=== PATIENT | female | born 1980 | race Caucasian/White ===

== ENCOUNTER → 2019-01-12 | Outpatient (CLI) | payer OTHER ==
[2019-01-12 22:29] LABS: LDL Cholesterol,Calculated 135.8 mg/dL (0.0-131.0); VLDL Calculation 11.2 mg/dL (5.00-40.00)
[2019-01-12 22:41] LABS: T4, Free (Free Thyroxine) 1.2 ng/dL (0.80-1.80)
== END ==
LOC: LABWHC1 15:48
PROVIDERS: ATTEND Obstetrics & Gynecology
DX: Z13.220 Encounter for screening for lipoid disorders (principal); Z13.29 Encounter for screening for other suspected endocrine disorder; Z13.1 Encounter for screening for diabetes mellitus
CPT/HCPCS: 36415; 80061; 82947; 84439; 84443

== ENCOUNTER → 2019-02-07 | Outpatient (CLI) | payer OTHER ==
--- NOTE | 2019-02-08 09:28 | MM ---
Reason for exam: screening (asymptomatic). Last mammogram was performed 3 years and 4 months ago. Physical Findings: A clinical breast exam by your physician is recommended on an annual basis and results should be correlated with mammographic findings. MG Screening Mammo w CAD Bilateral CC and MLO view(s) were taken. Prior study comparison: October 09, 2015, bilateral MG 3d diag mammo w/cad ADELINE. The breast tissue is heterogeneously dense. This may lower the sensitivity of mammography. No significant changes when compared with prior studies. ASSESSMENT: Negative, BI-RAD 1 RECOMMENDATION: Routine screening mammogram of both breasts in 1 year.
== END | disposition home or self-care (01) ==
LOC: RADMAMWWP 07:58
PROVIDERS: ATTEND Obstetrics & Gynecology
DX: Z12.31 Encounter for screening mammogram for malignant neoplasm of breast (principal)
CPT/HCPCS: 77067

== ENCOUNTER → 2021-05-05 | Outpatient (CLI) | payer OTHER ==
--- NOTE | 2021-05-11 12:21 | MM ---
Reason for exam: screening (asymptomatic). Last mammogram was performed 1 year ago. History: Took hormonal contraceptives for 15 years. Taking progesterone for 2 months. Physical Findings: A clinical breast exam by your physician is recommended on an annual basis and results should be correlated with mammographic findings. MG 3D Screening Mammo W/Cad Bilateral CC and MLO view(s) were taken. Prior study comparison: April 29, 2020, bilateral MG 3d screening mammo w/cad. February 07, 2019, bilateral MG screening mammo w CAD. The breast tissue is heterogeneously dense. This may lower the sensitivity of mammography. No significant changes when compared with prior studies. ASSESSMENT: Benign, BI-RAD 2 RECOMMENDATION: Routine screening mammogram of both breasts in 1 year.
== END | disposition home or self-care (01) ==
LOC: RADMAMWWP 09:51
PROVIDERS: ATTEND Obstetrics & Gynecology
DX: Z12.31 Encounter for screening mammogram for malignant neoplasm of breast (principal)
CPT/HCPCS: 77063; 77067

== ENCOUNTER → 2021-06-30 | Outpatient (CLI) | payer OTHER ==
[2021-06-30 19:04] LABS: HCT 44.4 % (37.2-46.3); HGB 14.9 g/dL (12.0-15.0); MCH 30.8 pg (27.0-32.0); MCHC 33.6 g/dL (32.0-37.0); MCV 91.9 fL (80.0-97.0); Mean Platelet Volume 10.1 fL (9.5-12.2); Platelet Count 360 X 10*3/uL (140-440); RBC 4.83 X 10*6/uL (4.10-5.20); RDW 11.9 % (11.5-14.5); WBC 6.64 X 10*3/uL (4.50-10.00)
[2021-07-02 21:15] LABS: VLDL Calculation 13.88 mg/dL (5.00-40.00)
[2021-07-02 23:31] LABS: African American GFR (CKD) 136.4 (60.0-200.0); Albumin 4.9 g/dL (3.8-4.9); Albumin/Globulin Ratio 1.94 (1.60-3.17); Anion Gap 14.4 mmol/L (4.00-12.00); BUN/Creat Ratio 30.14 Ratio (12.00-20.00); Blood Urea Nitrogen 15.4 mg/dL (9.0-27.0); Calcium 9.6 mg/dL (8.7-10.3); Carbon Dioxide 24.6 mmol/L (21.6-31.8); Chol/HDL Ratio 3.91 Ratio; Follicle Stimulating Hormone 3.9 mIU/mL; Globulin 2.5 g/dL (1.6-3.3); HDL Cholesterol 54.2 mg/dL (40.00-60.00); LDL Cholesterol,Calculated 143.9 mg/dL (0.0-131.0); Non-African American GFR(CKD) 117.7 (60.0-200.0); Potassium 3.8 mmol/L (3.5-5.5); Total Bilirubin 0.9 mg/dL (0.30-1.20); Total Protein 7.4 g/dL (6.2-8.2); Triglycerides 69.4 mg/dL (0.00-149.00)
== END | disposition home or self-care (01) ==
LOC: LABWHC1 13:40
PROVIDERS: ATTEND Obstetrics & Gynecology
DX: R53.83 Other fatigue (principal); Z20.822 Contact with and (suspected) exposure to COVID-19; N95.1 Menopausal and female climacteric states; E34.50 Androgen insensitivity syndrome, unspecified; Z86.16 Personal history of COVID-19
CPT/HCPCS: 36415; 80053; 80061; 82306; 82607; 82670; 83001; 84144; 84403; 84443; 84481; 85027; 86769

== ENCOUNTER → 2022-08-02 | Outpatient (CLI) | payer OTHER ==
[2022-08-02 16:49] LABS: INR 0.9 (<1.2); Prothrombin Time 10.3 sec (9.0-12.0)
[2022-08-02 23:12] LABS: Basophils # (A) 0.06 X 10*3/uL (0.00-0.10); Basophils % (A) 0.7 %; Eosinophils # (A) 0.07 X 10*3/uL (0.04-0.35); Eosinophils % (A) 0.8 %; HGB 14.3 g/dL (12.0-15.0); Immature Grans, Automated 0.3 %; Lymphocytes # (A) 2.18 X 10*3/uL (0.90-5.00); Lymphocytes % (A) 23.8 %; MCH 30.8 pg (27.0-32.0); MCV 90.5 fL (80.0-97.0); Mean Platelet Volume 10.5 fL (9.5-12.2); Monocytes # (A) 0.78 X 10*3/uL (0.20-1.00); Monocytes % (A) 8.5 %; NRBC Per 100 WBC 0 /100 WBCS (0.0-0.0); Neutrophils # (A) 6.03 X 10*3/uL (1.80-7.70); Neutrophils % (A) 65.9 %; Platelet Count 424 X 10*3/uL (140-440); RBC 4.64 X 10*6/uL (4.10-5.20); RDW 11.9 % (11.5-14.5); WBC 9.15 X 10*3/uL (4.50-10.00)
[2022-08-03 00:07] LABS: African American GFR (CKD) 122.1 (60.0-200.0); Albumin 5.3 g/dL (3.8-4.9); Albumin/Globulin Ratio 2.04 (1.60-3.17); Anion Gap 14.1 mmol/L (10.00-18.00); BUN/Creat Ratio 27.57 Ratio (12.00-20.00); Blood Urea Nitrogen 19.3 mg/dL (9.0-27.0); Carbon Dioxide 19.9 mmol/L (20.0-27.5); Globulin 2.6 g/dL (1.6-3.3); Non-African American GFR(CKD) 105.4 (60.0-200.0); Potassium 4.3 mmol/L (3.5-5.5); Total Bilirubin 1.3 mg/dL (0.30-1.20); Total Protein 7.9 g/dL (6.2-8.2)
--- NOTE | 2022-08-03 09:39 | XR ---
EXAMINATION TYPE: XR chest 2V DATE OF EXAM: 08/02/2022 COMPARISON: None INDICATION: Presurgical evaluation TECHNIQUE: Frontal and lateral views of the chest are obtained. FINDINGS: The heart size is normal. The pulmonary vasculature is normal. The lungs are clear. IMPRESSION: 1. No acute pulmonary process.
== END | disposition home or self-care (01) ==
LOC: LABPAT 15:22
PROVIDERS: ATTEND Orthopaedic Surgery Orthopaedic Surgery of the Spine
DX: Z01.818 Encounter for other preprocedural examination (principal); I51.7 Cardiomegaly; M54.10 Radiculopathy, site unspecified; R94.31 Abnormal electrocardiogram [ECG] [EKG]
CPT/HCPCS: 71046; 80053; 85025; 85610; 85730; 93005

== ENCOUNTER 2022-08-11 11:08 | Observation (INO) | payer OTHER ==
[~2022-08-11 11:08] MED LIST: DEXAMETHASONE SOD PHOSPHATE 4 MG/ML 1 ML VIAL IV ONE; LIDOCAINE 1% (10MG/ML) FOR IV START INTRADERMA PRN; methylPREDNISolone ACETATE 80 MG/ML 1 ML VIAL INTRAARTIC STA
[2022-08-11] MEDS ORDERED: LACTATED RINGERS 1,000 ML IV ONE (11:50)
[2022-08-11] MEDS ORDERED: HYDROmorphone 1 MG/ML 1 ML SYRINGE IVP ONE (11:50)
[2022-08-11] MEDS: ONDANSETRON 4 MG/2 ML VIAL IVP ONE ×2 (11:59→14:28)
[2022-08-11] MEDS ORDERED: LIDOCAINE 2% INJ 20 MG/ML (2 ML VIAL) ONE (12:09)
[2022-08-11] MEDS ORDERED: MIDAZOLAM 2 MG/2 ML VIAL ONE (12:09)
[2022-08-11] MEDS ORDERED: fentaNYL (PF) 50 MCG/ML 2 ML AMP ONE (12:09)
[2022-08-11] MEDS ORDERED: SUCCINYLCHOLINE CHLORIDE 200 MG/10 ML VIAL IV ONE (12:09)
[2022-08-11] MEDS ORDERED: PROPOFOL 10 MG/ML 20 ML VIAL IV ONE (12:09)
[2022-08-11] MEDS ORDERED: THROMBIN (BOVINE) 5,000 UNIT VIAL TOPICAL ONE (12:13)
[2022-08-11] MEDS ORDERED: ceFAZolin 1,000 MG in SODIUM CHLORIDE 0.9% 1,000 ML IRRIGATION ONE (12:13)
[2022-08-11] MEDS ORDERED: GELATIN SPONGE,ABSORB (LARGE) 1 EACH SPONGE TOPICAL ONE (12:13)
[2022-08-11] MEDS ORDERED: LIDOCAINE 0.5%-EPI 1:200,000 50 ML VIAL SQ ONE (12:13)
[2022-08-11] MEDS ORDERED: methylPREDNISolone ACETATE 80 MG/ML 1 ML VIAL MISCELLANE ONE (12:13)
--- NOTE | 2022-08-11 13:09 | FL ---
EXAMINATION TYPE: FL guidance operating room, XR lumbar spine 2 or 3V DATE OF EXAM: 08/11/2022 CLINICAL HISTORY: Low back pain TECHNIQUE: Fluoroscopy. Intraoperative 2 view lumbar spine COMPARISON: None. FINDINGS: Fluoroscopic guidance was provided during lumbar laminectomy and discectomy procedure perf ormed by Dr. Kearney. A total of 1 seconds of fluoroscopic time was utilized during the procedure and 1 spot images was acquired. Single intraoperative image saved to PACS is nondiagnostic. IMPRESSION: As Above.
[2022-08-11] MEDS ORDERED: BENZOCAINE/MENTHOL LOZENG 1 EACH LOZENGE MUCOUS MEM PRN (13:31)
[2022-08-11] MEDS ORDERED: HYDROmorphone 0.5 MG/0.5 ML SYRINGE IVP PRN (13:31)
[2022-08-11] MEDS ORDERED: ONDANSETRON 4 MG/2 ML VIAL IVP PRN (13:32)
[2022-08-11] MEDS ORDERED: CYCLOBENZAPRINE 10 MG TAB PO PRN (13:32)
[2022-08-11] MEDS ORDERED: IBUPROFEN 800 MG TAB PO PRN (13:33)
[2022-08-11] MEDS ORDERED: traMADol 50 MG TAB PO PRN (13:33)
[2022-08-11] MEDS ORDERED: HYDROcodone/APAP 7.5-325MG 1 EACH TAB PO PRN ×2 (13:33→13:34)
[2022-08-11] MEDS ORDERED: SUMAtriptan succinate 50 MG TAB PO PRN (13:33)
--- NOTE | 2022-08-11 13:37 | P.OP ---
Date of Procedure: 08/11/22 Preoperative Diagnosis: Herniated nucleus pulposus L5-S1, left lower extremity radiculopathy, left lower extremity weakness Postoperative Diagnosis: Same Anesthesia: GETA Pathology: none sent Condition: stable Disposition: PACU Description of Procedure: BRIEF OPERATIVE NOTE Preoperative Diagnosis:Herniated nucleus pulposus L5-S1, left lower extremity radiculopathy, left lower extremity weakness Postoperative Diagnosis:Herniated nucleus pulposus L5-S1, left lower extremity radiculopathy, left lower extremity weakness Procedure: Laminectomy and decompression L5-S1 with partial medial facetectomy and foraminotomy for decompression Discectomy for decompression L5-S1 Use of fluoroscopic guidance Surgeon: Dr. Kearney Corporate Safety Coordinator: Ralph Gordillo is present throughout the entire the case persistence during positioning, dissection, exposure, visualization, and all crucial elements of the case as well as closure. Anesthesia: General anesthesia per Dr. Torres Estimated blood loss: Approximately 20 mL Complications: None apparent Components implanted: None Disposition: To recovery room in good stable condition. OPERATIVE INDICATIONS The patient has been having issues in their lower back and lower extremities. The patient had been having issues for a few months but had severe worsening over the past few weeks. She's been having severe left lower extremity pain with numbness tingling and some subjective weakness as well. She is found have a large disc herniation L5-S1 which quite well with her low back and lower e xtremity symptoms. She denied having any benefit with aggressive conservative care with medicines and therapy. The patient has been through conservative treatment. We discussed various treatment options including surgery, and the patient wishes to proceed with surgery We discussed the risk, patient's alternatives and benefits of surgery including but not limited to, risk of bleeding risk of infection, risk of need for further surgery, risk of decreased, loss of motion, loss of function, nerve damage, paralysis, heart attack, blindness and . OPERATIVE SUMMARY After discussing all the risks, patient alternatives and benefits at length, the patient elected to proceed with surgical intervention, signed informed consent, and presented for their procedure. The patient was seen and examined in the preoperative holding area and the surgical site was marked. The patient was given antibiotics and brought to the operating room. The patient was sedated and intubated by anesthesia in standard fashion. The patient was positioned on to the operating room table in a prone position on the appropriate frame which was well-padded and well molded. We were careful to pad any bony prominences and pressure points. We were careful to maintain the patient's cervical spine and good neutral alignment and position throughout. The patient was prepped and draped in a normal standard fashion. An appropriate timeout and keystone protocol performed. We were able to proceed with the surgery. Fluoroscopy was utilized to establish the appropriate level. The local wound area was infiltrated with local anesthetic. An incision was made at the midline longitudinally over the appropriate levels at L5-S1. Dissection was taken down subcutaneously to the level of the fascia which was split midline. Dissection was taken over the lamina. Intraoperative fluoroscopy was taken which showed a marker at the appropriate level of L5-S1. With the appropriate level positively confirmed, we were able to proceed with laminectomy. The wound was copiously irrigated and suctioned dry as had been done periodically throughout the case. I performed a laminectomy with a combination of curettes and a high-speed bur and Kerrison rongeurs. A small medial facetectomy was performed again further access. A partial foraminotomy was also performed. Portions of the ligamentum flavum were taken down to expose the dura and traversing nerve root. I was able to mobilize the traversing nerve root and gain access to the disc space. Note was made of obvious compression from the disc. Protecting the soft tissue structures, a small annulotomy was established. I was able to perform discectomy and remove any extruded disc fragments and any loose fragments from within the disc itself. There is some disc desiccation noted. I tried to preserve the disc annulus that appeared stable. There were no further extruded fragments noted. There is no evidence of dural tear or leak. Good hemostasis maintained. The wound was copiously irrigated and suctioned dry. Good decompression and discectomy was noted. We were able to proceed with closure. The fascia was closed for a watertight closure. The subcuticular tissue was closed with absorbable suture. The wound was cleaned and dried and dressed with the appropriate dressing. The drapes were broken down. The patient was gently rolled back onto their hospital bed being careful to maintain their cervical spine and good neutral alignment and position. They were woken up by anesthesia, extubated, and brought to the recovery room in good stable condition. The patient will be admitted to the hospital for observation and for appropriate postoperative care, medical management and monitoring. We will continue to follow them closely about the postoperative course.
[2022-08-11] MEDS: HYDROmorphone 0.5 MG/0.5 ML SYRINGE IVP PRN ×3 (14:07→14:27)
[2022-08-11] MEDS ORDERED: SODIUM CHLORIDE 0.9% 1,000 ML IV ONE (14:37)
[2022-08-11] MEDS: LACTATED RINGERS 1,000 ML IV SCH (15:40)
[2022-08-11] MEDS: ACETAMINOPHEN TAB 500 MG TAB PO SCH ×2 (17:05→21:01)
[2022-08-11] MEDS: KETOROLAC 15 MG/ML 1 ML VIAL IVP SCH (17:05)
[2022-08-11] MEDS: SODIUM CHLORIDE 0.9% 1,000 ML IV SCH (17:06)
[2022-08-11] MEDS ORDERED: CYCLOBENZAPRINE 10 MG TAB PO SCH (21:00)
[2022-08-12] MEDS: KETOROLAC 15 MG/ML 1 ML VIAL IVP SCH ×3 (00:44→12:02)
[2022-08-12] MEDS: SODIUM CHLORIDE 0.9% 1,000 ML IV SCH ×2 (00:46→07:36)
[2022-08-12 02:08] VITALS: RESP 16; TEMP 98.4
[2022-08-12] MEDS: LACTATED RINGERS 1,000 ML IV SCH (05:48)
[2022-08-12] MEDS: ACETAMINOPHEN TAB 500 MG TAB PO SCH (08:18)
[2022-08-12 08:38] VITALS: BP 118/75; PULSE 81
[2022-08-12] MEDS ORDERED: CHOLECALCIFEROL 125 MCG (5000 IU) TABLET PO SCH (09:00)
--- NOTE | 2022-08-12 09:46 | P.DS ---
Providers Date of admission: 08/12/22 05:54 Attending physician: Narciso Kearney Primary care physician: [facility] Course: The patient presented on the day of admission as per their operative note. She had severe radicular pain and low back pain incapacitating issues causing her great difficulty with resting and walking and mobilizing due to a disc herniation at L5-S1. She presented for her surgery as per her operative note. This morning she says she is doing so much better. She feels that this is the first time she's been able to sit up out of bed on her own in the past month. She feels great relief in her leg. She says her back is sore around the surgical site. She denies any nausea or vomiting. She is voiding freely. Physical Exam The incision site is clean dry and intact. There is no erythema no drainage. There is no purulence no evidence of infection. There is no drainage the wound is clear. Abdomen soft and nontender. Chest has good excursion with deep inspiration and expiration. The patient has active and passive range of motion intact at the upper and lower extremities. There is no acute change in neurologic status. She has sustained dorsal flexion and EHL intact. Hospital Course Postoperative day #1 status post laminectomy discectomy at L5-S1 for disc herniation with extruded fragment and lower extremity radiculopathy Patient is doing very well thus far and is happy with results. She was doing quite out of it last night and stayed overnight for observation. The patient has been making good progress postoperatively. They have completed the prophylactic antibiotics without any signs or symptoms of infection. The patient has been able to advance their diet, and is tolerating diet adequately. The pain was initially controlled with IV medications and is now controlled appropriately with oral medications. The patient has been able to increase their mobilization. The patient has progressed appropriately. I think they are in good stable condition for discharge today. They will be sent home with appropriate prescriptions. I answered their questions to the best of my ability in a language that they can understand and they are agreeable with the plan. They will follow up as directed in approximately 2 weeks or sooner if she is having problems. Patient Condition at Discharge: Good Plan - Discharge Summary Discharge Rx Participant: No New Discharge Prescriptions: New Hydrocodone/Acetaminophen [Hydrocodone/Acetaminophen 7.5-325] 1 each PO Q6HR 7 Days #28 tab No Action Cholecalciferol [Vitamin D3 (125 Mcg = 5000 Iu)] 125 mcg PO DAILY Cyclobenzaprine HCl 10 mg PO HS Hydrocodone/Acetaminophen [Hydrocodone-Acetamin 7.5-325] 1 each PO TID PRN PRN Reason: Pain Ibuprofen 800 mg PO Q8H PRN PRN Reason: Pain Unk Collagen Powder 1 scoop PO DAILY SUMAtriptan succinate [Imitrex] 100 mg PO DIRECTED PRN PRN Reason: Migraine Headache Acetaminophen Tab [Tylenol Tab] 1,000 mg PO TID traMADol HCl [Ultram] 50 mg PO BID PRN PRN Reason: Pain Unk Progesterone Cream 30mg 2 pump TOPICAL DAILY Unk Multi Vitamin 1 tab PO DAILY Unk Iodine Drops 4 drop PO DAILY Discharge Medication List Acetaminophen Tab [Tylenol Tab] 1,000 mg PO TID 08/05/22 [History] Cholecalciferol [Vitamin D3 (125 Mcg = 5000 Iu)] 125 mcg PO DAILY 08/05/22 [History] Cyclobenzaprine HCl 10 mg PO HS 08/05/22 [History] Hydrocodone/Acetaminophen [Hydrocodone-Acetamin 7.5-325] 1 each PO TID PRN 08/05/22 [History] Ibuprofen 800 mg PO Q8H PRN 08/05/22 [History] SUMAtriptan succinate [Imitrex] 100 mg PO DIRECTED PRN 08/05/22 [History] Unk Collagen Powder 1 scoop PO DAILY 08/05/22 [History] Unk Iodine Drops 4 drop PO DAILY 08/05/22 [History] Unk Multi Vitamin 1 tab PO DAILY 08/05/22 [History] Unk Progesterone Cream 30mg 2 pump TOPICAL DAILY 08/05/22 [History] traMADol HCl [Ultram] 50 mg PO BID PRN 08/05/22 [History] Hydrocodone/Acetaminophen [Hydrocodone/Acetaminophen 7.5-325] 1 each PO Q6HR 7 Days #28 tab 08/11/22 [Rx]
[2022-08-14] MEDS ORDERED: IBUPROFEN 600 MG TAB PO SCH
== END 2022-08-12 12:30 ==
LOC: OR 11:08 → 4SSUR 14:01 → OR 08-12 05:54 → 4SSUR 08-12 05:54
PROVIDERS: ADMIT Orthopaedic Surgery Orthopaedic Surgery of the Spine; ATTEND Orthopaedic Surgery Orthopaedic Surgery of the Spine
DX: M51.17 Intervertebral disc disorders with radiculopathy, lumbosacral region (principal); R53.1 Weakness
CPT/HCPCS: 96365; 96366; 96375; 97161; 81025; 72100; 63030; G0378; J2250; J0330; J1040; J0690 ×3; J2405; J3010; J1170 ×2; J1885 ×2; J2704; J2001

== ENCOUNTER → 2022-10-14 | Outpatient (CLI) | payer OTHER ==
--- NOTE | 2022-10-15 08:34 | MM ---
Reason for Exam: Screening (asymptomatic). Last mammogram was performed 1 year(s) and 5 month(s) ago. Patient History: Menarche at age 10. First Full-Term at age 21. Patient has history of breast feeding. Currently using Progesterone, for 2 months. Patient used Hormonal Contraceptives for 15 years. Risk Values: Kat 5 year model risk: 0.7%. NCI Lifetime model risk: 8.7%. Prior Study Comparison: 02/07/2019 Bilateral Screening Mammogram, [facility]. 04/29/2020 Bilateral Screening Mammogram, [facility]. 05/05/2021 Bilateral Screening Mammogram, [facility]. Tissue Density: The breast tissue is heterogeneously dense. This may lower the sensitivity of mammography. Findings: Analyzed By CAD. There is no suspicious group of microcalcifications or new suspicious mass in either breast. Overall Assessment: Negative, BI-RAD 1 Management: Screening Mammogram of both breasts in 1 year. A clinical breast exam by your physician is recommended on an annual basis and results should be correlated with mammographic findings. Electronically signed and approved by: Lavelle Acevedo D.O.
== END | disposition home or self-care (01) ==
LOC: RADMAMWWP 10-04 09:16
PROVIDERS: ATTEND Obstetrics & Gynecology
DX: Z12.31 Encounter for screening mammogram for malignant neoplasm of breast (principal)
CPT/HCPCS: 77063; 77067

== ENCOUNTER → 2023-10-18 | Outpatient (CLI) | payer OTHER ==
--- NOTE | 2023-10-19 19:47 | MM ---
Reason for Exam: Screening (asymptomatic). Last screening mammogram was performed 12 month(s) ago. Patient History: Menarche at age 10. First Full-Term at age 21. Patient has history of breast feeding. Currently using Progesterone, for 2 months. Patient used Hormonal Contraceptives for 15 years. Risk Values: Kat 5 year model risk: 0.7%. NCI Lifetime model risk: 8.6%. Prior Study Comparison: 04/29/2020 Bilateral Screening Mammogram, [facility]. 05/05/2021 Bilateral Screening Mammogram, [facility]. 10/14/2022 Bilateral MG 3D screening mammo w/cad, [facility]. Tissue Density: The breast tissue is heterogeneously dense. This may lower the sensitivity of mammography. Findings: Analyzed By CAD. Central asymmetric density right MLO view appears more defined. This may represent superimposed shadow but further evaluation is recommended. Otherwise, no significant change. Overall Assessment: Incomplete: need additional imaging evaluation, BI-RAD 0 Management: Special View Mammogram of the right breast. Diagnostic Breast Ultrasound of the right breast. Additional views to include spot 3-D MLO and 3-D lateral views. Targeted right breast ultrasound if any persisting abnormality. [facility] will attempt to contact patient to return for supplemental views and ultrasound if indicated. Electronically signed and approved by: Nhung Car M.D. Radiologist
== END | disposition home or self-care (01) ==
LOC: RADMAMWWP 08:32
PROVIDERS: ATTEND Obstetrics & Gynecology
DX: Z12.31 Encounter for screening mammogram for malignant neoplasm of breast (principal)
CPT/HCPCS: 77063; 77067

== ENCOUNTER 2023-10-21 14:14 | Emergency (ER) | payer OTHER ==
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
[2023-10-21 14:34] VITALS: TEMP 98
[2023-10-21] MEDS: HYDROmorphone 1 MG/ML 1 ML SYRINGE IVP STA ×2 (14:40→16:43)
[2023-10-21] MEDS: SODIUM CHLORIDE 0.9% 500 ML 500 ML IV STA (14:40)
[2023-10-21 14:46] LABS: Basophils # (A) 0.1 k/uL (0-0.2); Basophils % (A) 0 %; Eosinophils # (A) 0.2 k/uL (0-0.7); Eosinophils % (A) 1 %; HGB 14.1 gm/dL (11.4-16.0); Lymphocytes # (A) 1.6 k/uL (1.0-4.8); Lymphocytes % (A) 13 %; MCH 32.2 pg (25.0-35.0); MCHC 33.5 g/dL (31.0-37.0); MCV 95.9 fL (80.0-100.0); Monocytes # (A) 0.6 k/uL (0-1.0); Monocytes % (A) 5 %; Neutrophils # (A) 9.4 k/uL (1.3-7.7); Neutrophils % (A) 79 %; Platelet Count 321 k/uL (150-450); RBC 4.38 m/uL (3.80-5.40); WBC 11.9 k/uL (3.8-10.6)
[2023-10-21 14:55] LABS: Partial Thromboplastin Time 23.2 sec (22.0-30.0); Prothrombin Time 11.3 sec (10.0-12.5)
[2023-10-21 15:01] LABS: ALT 23 U/L (4-34); AST 29 U/L (14-36); African American GFR (CKD) 80 (>60 ml/min/1.73 sqM); Albumin 4.7 g/dL (3.5-5.0); Alkaline Phosphatase 57 U/L (38-126); Anion Gap 7 mmol/L; Blood Urea Nitrogen 22 mg/dL (7-17); Calcium 9.8 mg/dL (8.4-10.2); Carbon Dioxide 30 mmol/L (22-30); Chloride 101 mmol/L (98-107); Glucose 106 mg/dL (74-99); Non-African American GFR(CKD) 69 (>60 ml/min/1.73 sqM); Sodium 138 mmol/L (137-145); Total Bilirubin 0.9 mg/dL (0.2-1.3); Total Protein 7.7 g/dL (6.3-8.2)
[2023-10-21] MEDS: ACETAMINOPHEN IV (For NPO) 1,000 MG in EMPTY BAG 1 BAG IVPB STA (15:11)
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
[2023-10-21 15:24] LABS: Alcohol <10 mg/dL
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
[2023-10-21] MEDS: IBUPROFEN 600 MG STARTER PACK 4 TAB BTL PO STA (16:17)
[2023-10-21] MEDS: ACET/COD 300 MG/30 MG STARTER PACK 6 TAB BTL PO STA (16:17)
[2023-10-21] MEDS: KETOROLAC 15 MG/ML 1 ML VIAL IVP STA (16:17)
[2023-10-21 17:38] VITALS: BP 132/85; PULSE 62; RESP 20
== END 2023-10-21 16:45 | disposition home or self-care (01) ==
LOC: EC 14:14
DX: S20.219A Contusion of unspecified front wall of thorax, initial encounter (principal); R00.1 Bradycardia, unspecified; V43.62XA Car passenger injured in collision with other type car in traffic accident, initial encounter; Y92.410 Unspecified street and highway as the place of occurrence of the external cause
CPT/HCPCS: 99285 ×2; 96365 ×2; 96375 ×3; 96361 ×2; 36415; 86900; 86901; 80053; 84484; 85025; 85610; 85730; 86850; 80320; 72170; 71045; 72125; 70450; 71260; 74177; G0390; J1170; J0131; J1885; Q9967

== ENCOUNTER → 2023-10-24 | Outpatient (CLI) | payer OTHER ==
--- NOTE | 2023-10-24 10:41 | MM ---
Reason for Exam: Additional evaluation requested from abnormal screening. Last screening mammogram was performed less than 1 month ago. Patient History: Menarche at age 10. First Full-Term at age 21. Patient has history of breast feeding. Currently using Progesterone, for 2 months. Patient used Hormonal Contraceptives for 15 years. Risk Values: Kat 5 year model risk: 0.7%. NCI Lifetime model risk: 8.6%. Prior Study Comparison: 04/29/2020 Bilateral Screening Mammogram, [facility]. 05/05/2021 Bilateral Screening Mammogram, [facility]. 10/14/2022 Bilateral MG 3D screening mammo w/cad, [facility]. 10/18/2023 Bilateral MG 3D screening mammo w/cad, [facility]. Tissue Density: Right: The breast tissue is heterogeneously dense. This may lower the sensitivity of mammography. Findings: Analyzed By CAD. The questioned area of asymmetric density central MLO view that does not persist on additional views. Findings compatible with superimposition shadow. Overall Assessment: Benign, BI-RAD 2 Management: Screening Mammogram of both breasts in 1 year. Results were given to the patient verbally at the time of exam. Patient should continue monthly self-breast exams. A clinical breast exam by your physician is recommended on an annual basis. This exam should not preclude additional follow-up of suspicious palpable abnormalities. Note on Kat scores and lifetime risk: 1. A Kat score greater than 3% is considered moderate risk. If this is the case, consider specialist referral to assess eligibility for a risk reducing agent. 2. If overall lifetime risk for the development of breast cancer is 20% or higher, the patient may qualify for future screening with alternating mammogram and breast MRI. Electronically signed and approved by: Nhung Car M.D. Radiologist
== END | disposition home or self-care (01) ==
LOC: RADMAMWWP 10:14
PROVIDERS: ATTEND Obstetrics & Gynecology
DX: R92.331 Mammographic heterogeneous density, right breast (principal)
CPT/HCPCS: 77061; 77065

== ENCOUNTER → 2024-03-13 | Outpatient (CLI) | payer OTHER ==
--- NOTE | 2024-03-13 11:19 | XR ---
EXAMINATION TYPE: XR chest 2V DATE OF EXAM: 03/13/2024 COMPARISON: NONE HISTORY: Chest pain TECHNIQUE: Frontal and lateral views of the chest are obtained. FINDINGS: There is no focal air space opacity. No evidence for pneumothorax. No pleural effusion. The cardiac silhouette size is within normal limits. The osseous structures are grossly intact. IMPRESSION: 1. No acute cardiopulmonary process.
--- NOTE | 2024-03-13 11:21 | XR ---
EXAMINATION TYPE: XR ribs LT DATE OF EXAM: 03/13/2024 CLINICAL HISTORY: Pain, Fall 2 views of the ribs demonstrate fractures of left ribs 9 and 10 laterally. Visualized lungs are clear . No evidence for pneumothorax. IMPRESSION: Changes of left ribs 9 and 10
== END | disposition home or self-care (01) ==
LOC: RADXRMAIN 10:34
PROVIDERS: ATTEND Family Medicine
DX: R07.81 Pleurodynia (principal); R07.89 Other chest pain
CPT/HCPCS: 71046

== ENCOUNTER → 2024-10-25 | Outpatient (CLI) | payer OTHER ==
--- NOTE | 2024-10-25 13:22 | MM ---
Reason for Exam: Screening (asymptomatic). Last screening mammogram was performed 12 month(s) ago. Patient History: Menarche at age 10. First Full-Term at age 21. Patient has history of breast feeding. Currently using Progesterone, for 2 months. Patient used Hormonal Contraceptives for 15 years. Risk Values: Kat 5 year model risk: 0.8%. NCI Lifetime model risk: 8.5%. Prior Study Comparison: 10/14/2022 Bilateral MG 3D screening mammo w/cad, [facility]. 10/18/2023 Bilateral MG 3D screening mammo w/cad, [facility]. 10/24/2023 Right MG 3D work up w/cad RT, [facility]. Tissue Density: The breasts are heterogeneously dense, which may obscure small masses. Findings: Analyzed By CAD. Areas of asymmetric density are unchanged. There is no suspicious group of microcalcifications or new suspicious mass in either breast. Overall Assessment: Benign, BI-RAD 2 Management: Screening Mammogram of both breasts in 1 year. . Patient should continue monthly self-breast exams. A clinical breast exam by your physician is recommended on an annual basis. This exam should not preclude additional follow-up of suspicious palpable abnormalities. Note on Kat scores and lifetime risk: 1. A Kat score greater than 3% is considered moderate risk. If this is the case, consider specialist referral to assess eligibility for a risk reducing agent. 2. If overall lifetime risk for the development of breast cancer is 20% or higher, the patient may qualify for future screening with alternating mammogram and breast MRI. [facility], , 10/25/2024 1:19 PM. Electronically signed and approved by: Nhung Car M.D. Radiologist
== END | disposition home or self-care (01) ==
LOC: RADMAMWWP 12:00
PROVIDERS: ATTEND Obstetrics & Gynecology
DX: Z12.31 Encounter for screening mammogram for malignant neoplasm of breast (principal); R92.333 Mammographic heterogeneous density, bilateral breasts
CPT/HCPCS: 77063; 77067

== ENCOUNTER → 2024-12-05 | Outpatient (CLI) | payer OTHER | END | disposition home or self-care (01) | LOC: LABWHC1 15:54 | PROVIDERS: ATTEND Obstetrics & Gynecology | DX: N95.9 Unspecified menopausal and perimenopausal disorder (principal) | CPT/HCPCS: 36415; 82670; 84144 ==